=== PATIENT | male | born 1945 | race Caucasian/White ===

== ENCOUNTER 2022-02-15 13:45 | Day surgery (SDC) | payer MEDICARE, OTHER ==
[2022-02-13 15:28] VITALS: BMI 30.6
[~2022-02-15 13:45] MED LIST: DEXAMETHASONE SOD PHOSPHATE 4 MG/ML 1 ML VIAL IV ONE; HYDROmorphone 0.5 MG/0.5 ML SYRINGE IVP PRN; LACTATED RINGERS 1,000 ML IV SCH; MOXIFLOXACIN HCL 0.5% DROPS 3 ML BTL OP PRN; ONDANSETRON 4 MG/2 ML VIAL IVP ONE; TETRACAINE 0.5% OPHTH (PF) DROPS 4 ML BTL OP PRN; TIMOLOL 0.5% OPHTH DROPS 5 ML BTL OP PRN
[2022-02-15] MEDS: PHENYLEPHRINE 2.5% OPHTH DRP 2ML OP PRN ×3 (14:05→14:24)
[2022-02-15] MEDS: CYCLOPENTOLATE 1% OPHTH SOLN 2 ML BTL OP PRN ×3 (14:08→14:28)
[2022-02-15 14:25] VITALS: RESP 16; TEMP 98
[2022-02-15] MEDS ORDERED: fentaNYL (PF) 50 MCG/ML 2 ML AMP ONE (15:50)
[2022-02-15] MEDS ORDERED: MIDAZOLAM 2 MG/2 ML VIAL ONE (15:50)
[2022-02-15] MEDS ORDERED: EPINEPHrine (PF) 0.3 ML in BALANCED SALT IRRIG SOLN COMB2 500 ML IRRIGATION ONE (16:11)
[2022-02-15] MEDS ORDERED: HYALURONATE SODIUM INTRAOCULAR 1 EACH SYRINGE (12MG/ML) INTRAOCULA ONE (16:15)
[2022-02-15] MEDS ORDERED: BALANCED SALT IRRIG SOLN COMB2 15 ML IRRIG.SOLN IRRIGATION ONE (16:15)
[2022-02-15] MEDS ORDERED: LIDOCAINE 1% (PF) 10MG/ML VIAL SQ ONE (16:16)
--- NOTE | 2022-02-15 16:45 | P.OP ---
Date of Procedure: 02/15/22 Preoperative Diagnosis: NS & CS Postoperative Diagnosis: same Procedure(s) Performed: PIOL, OS Implants: [id number] 17.50 Anesthesia: MAC Surgeon: Devin Gonzales Pathology: none sent Condition: stable Disposition: same day Indications for Procedure: blurry vision Operative Findings: no complications
[2022-02-15 17:07] VITALS: BP 130/78; PULSE 50
--- NOTE | 2022-02-15 22:23 | OP ---
OPERATIVE REPORT DATE OF SURGERY: 02/15/2022. PROCEDURE: Phacoemulsification of cataract and intraocular lens implant of the left eye. PREOPERATIVE DIAGNOSIS: Nuclear sclerosis, cortical sclerosis with regular astigmatism. POSTOPERATIVE DIAGNOSIS: Nuclear sclerosis, cortical sclerosis with regular astigmatism. SURGEON: Dr. Devin Gonzales. ANESTHESIA: Topical. ESTIMATED BLOOD LOSS: Less than 5 mL. SPECIMEN TAKEN: None. NARRATIVE: After obtaining the appropriate consent, the patient was brought to the operating room. There he was asked to sit upright, and the axes of zero and 180 degrees were identified and marked with a Gentian Anna marker. This was followed by placement of the patient in the proper supine position under cardiac monitoring and prepped and draped in the usual sterile manner. He was approached from his left temporal side, and using previously acquired corneal topography information, the axis of 90 degrees was identified and marked with a [employer] [place] Marker. This was followed by the use of an MVR blade placed at about 5 o'clock on the patient's cornea to create a paracentesis. Through this opening 1% Xylocaine MPF 50:50 mix with balanced salt solution was injected into the anterior chamber. This was followed by stabilization of the anterior chamber with Amvisc. At the 3 o'clock position, a 2.5 mm keratome was used to create a self-sealing corneal flap incision. Through this opening, a cystotome was introduced to begin a continuous tear capsulorrhexis which was then completed using the Utrata forceps. Hydrodissection and hydrodelineation of the lens was accomplished with balanced salt solution. Phacoemulsification of the lens utilizing phaco chop was accomplished in 23.2 seconds at 16% power. Additional Xylocaine MPF was instilled into the anterior chamber. This was followed by removal of the remaining cortical material under irrigation and aspiration as well as careful polishing of the posterior capsule in the capsule vacuum mode. Amvisc was then used to stabilize the capsular bag, and Emir and Pepjayashree capsule polisher instruments were introduced to clean the additional remaining cortical material from the underside of the anterior capsular leaflet. At this stage, an Sharath [employer] model MADIE 315 17.5 diopter posterior chamber intraocular lens was then inserted into the capsular bag without difficulty. This was followed by removal of the remaining viscoelastic material from in and around the intraocular lens. Once the lens was secure in the posterior capsule, alignment of the toric lens was made with the previously placed axes at the 90-degree frank on the patient's sclera. The eye was then brought to normal intraocular pressure through the paracentesis port. He then received two drops of 0.5% timolol followed by two drops of 0.5% moxifloxacin. He was then lightly patched and shielded in the usual manner. There were no complications from the procedure. He tolerated the procedure well and was returned to [facility]patient [facility] in good condition. MMSUSAN / CHACE: [id number] /
== END 2022-02-15 17:29 | disposition home or self-care (01) ==
LOC: OR 13:45
PROVIDERS: ATTEND Ophthalmology
DX: H25.12 Age-related nuclear cataract, left eye (principal); H25.012 Cortical age-related cataract, left eye; H52.222 Regular astigmatism, left eye; H35.071 Retinal telangiectasis, right eye; H52.13 Myopia, bilateral; H52.4 Presbyopia; I10 Essential (primary) hypertension; E78.5 Hyperlipidemia, unspecified; E78.00 Pure hypercholesterolemia, unspecified; M19.90 Unspecified osteoarthritis, unspecified site; H35.30 Unspecified macular degeneration; Z86.711 Personal history of pulmonary embolism; Z79.82 Long term (current) use of aspirin; Z79.01 Long term (current) use of anticoagulants; Z79.899 Other long term (current) drug therapy; Z91.030 Bee allergy status; Z98.890 Other specified postprocedural states; Z82.61 Family history of arthritis; Z80.9 Family history of malignant neoplasm, unspecified; Z82.49 Family history of ischemic heart disease and other diseases of the circulatory system
CPT/HCPCS: 66984; V2787; C1780; J2250; J0171; J3010; J2001

== ENCOUNTER 2022-03-08 09:09 | Day surgery (SDC) | payer MEDICARE, OTHER ==
[2022-03-07 14:24] VITALS: BMI 31.1
[~2022-03-08 09:09] MED LIST changes: -DEXAMETHASONE SOD PHOSPHATE 4 MG/ML 1 ML VIAL IV ONE; -HYDROmorphone 0.5 MG/0.5 ML SYRINGE IVP PRN; +LIDOCAINE 1% (10MG/ML) FOR IV START INTRADERMA PRN; -ONDANSETRON 4 MG/2 ML VIAL IVP ONE
[2022-03-08] MEDS: CYCLOPENTOLATE 1% OPHTH SOLN 2 ML BTL OP PRN ×3 (09:33→09:45)
[2022-03-08] MEDS: PHENYLEPHRINE 2.5% OPHTH DRP 2ML OP PRN ×3 (09:36→09:48)
[2022-03-08 09:38] VITALS: PULSE 51; TEMP 97.3
[2022-03-08] MEDS ORDERED: MIDAZOLAM 2 MG/2 ML VIAL ONE (10:40)
[2022-03-08] MEDS ORDERED: fentaNYL (PF) 50 MCG/ML 2 ML AMP ONE (10:40)
[2022-03-08] MEDS ORDERED: ePHEDrine 50 MG/ML 1 ML VIAL ONE (10:40)
[2022-03-08] MEDS ORDERED: EPINEPHrine (PF) 0.3 ML in BALANCED SALT IRRIG SOLN COMB2 500 ML IRRIGATION ONE (10:51)
[2022-03-08] MEDS ORDERED: HYALURONATE SODIUM INTRAOCULAR 1 EACH SYRINGE (12MG/ML) INTRAOCULA ONE (10:51)
[2022-03-08] MEDS ORDERED: LIDOCAINE 1% (PF) 10MG/ML VIAL MISCELLANE ONE (10:52)
[2022-03-08] MEDS ORDERED: BALANCED SALT IRRIG SOLN COMB2 15 ML IRRIG.SOLN INTRAOCULA ONE (10:52)
--- NOTE | 2022-03-08 11:16 | P.OP ---
Date of Procedure: 03/08/22 Preoperative Diagnosis: NS & CS Postoperative Diagnosis: same Procedure(s) Performed: PIOL OD Implants: [id number] 17.00 Anesthesia: MAC Surgeon: Devin Gonzales Pathology: none sent Condition: stable Disposition: same day Indications for Procedure: blurry vision Operative Findings: no complications
[2022-03-08 11:22] VITALS: RESP 16
[2022-03-08 11:45] VITALS: BP 133/77
--- NOTE | 2022-03-09 11:38 | OP ---
OPERATIVE REPORT DATE OF SURGERY: March 08, 2022. PROCEDURE: Phacoemulsification of cataract and intraocular lens implant of the right eye. PREOPERATIVE DIAGNOSES: Nuclear sclerosis, cortical sclerosis and regular astigmatism. POSTOPERATIVE DIAGNOSES: Nuclear sclerosis, cortical sclerosis and regular astigmatism. SURGEON: Dr. Devin Gonzales. ANESTHESIA: Topical. ESTIMATED BLOOD LOSS: None. SPECIMEN TAKEN: None. NARRATIVE: After obtaining the appropriate consent, the patient was brought to the operating room there he was asked to sit upright and the axes 0 and 180 degrees were identified and marked with a gentian amish marker at the patient's corneal limbus. He was then placed in the proper supine position under cardiac monitoring, prepped and draped in the usual sterile manner. He was approached from his right temporal side and using the previously acquired corneal topography information, the axis of 91 degrees was identified and marked with a [employer] axis marker. At the 11 o'clock position, an MVR blade was used to greater create a paracentesis port. Through this opening, 1% Xylocaine MPF 50:50 mix with balanced salt solution was injected into the anterior chamber. This was followed by stabilization of the anterior chamber with Amvisc. At the 9 o'clock position, a 2.5 mm keratome was used to create a self-sealing corneal flap incision. Through this opening, a cystotome was introduced to begin a continuous tear capsulorrhexis which was then completed using the Utrata forceps. Hydrodissection and hydrodelineation of the lens was accomplished with balanced salt solution. Phacoemulsification lens was accomplished in 21.3 seconds at 12% power using phaco chop. The patient then received additional Xylocaine MPF through the paracentesis port and removal of the remaining cortical material was removed under irrigation and aspiration as well as careful polishing of the posterior capsule in capsule vacuum mode. Additional Amvisc was then used to stabilize the capsular bag and an [employer] model MADIE 315 17.0 diopter posterior chamber intraocular lens was then inserted into the capsular bag without difficulty. The remaining viscoelastic was then removed from in and around the intraocular lens and the orientation of the lens was aligned with the previously placed axis bazan at the 91 degree position. Confirmation of that position was made with the Cionni axis marker at the end of the case. Balance salt solution was then used to bring the eye to normal intraocular pressure through the paracentesis port and there was confirmation that the wounds were watertight. He then received 2 drops of 0.5% timolol followed by 2 drops of moxifloxacin. He was then lightly patched and shielded in the usual manner. There were no complications from the procedure, and he tolerated the procedure well. He was returned to recovery in good condition. MMSUSAN / ANDREAN: [id number] /
== END 2022-03-08 12:08 | disposition home or self-care (01) ==
LOC: OR 09:09
PROVIDERS: ATTEND Ophthalmology
DX: H25.11 Age-related nuclear cataract, right eye (principal); H52.221 Regular astigmatism, right eye
CPT/HCPCS: 66984; V2787; C1780; J2250; J0171; J3010; J2001

== ENCOUNTER → 2024-03-17 | Outpatient (CLI) | payer MEDICARE ==
[2024-03-17 15:35] LABS: ALT 39 U/L (10-49); AST 26 U/L (14-35); Albumin 4.3 g/dL (3.8-4.9); Albumin/Globulin Ratio 1.48 Ratio (1.60-3.17); Alkaline Phosphatase 105 U/L (41-126); BUN/Creat Ratio 11.62 Ratio (12.00-20.00); Blood Urea Nitrogen 9.3 mg/dL (9.0-27.0); Calcium 9.6 mg/dL (8.7-10.3); Carbon Dioxide 24.4 mmol/L (21.6-31.8); Chloride 106 mmol/L (96-109); Chol/HDL Ratio 3.51 Ratio; Globulin 2.9 g/dL (1.6-3.3); Glucose 108 mg/dL (70-110); LDL Cholesterol,Calculated 58.8 mg/dL (0.0-131.0); Potassium 4.7 mmol/L (3.5-5.5); Sodium 143 mmol/L (135-145); Total Bilirubin 0.6 mg/dL (0.3-1.2); Total Protein 7.2 g/dL (6.2-8.2)
[2024-03-17 16:03] LABS: Basophils # (A) 0.05 X 10*3/uL (0.00-0.10); Basophils % (A) 0.6 %; Eosinophils # (A) 0.15 X 10*3/uL (0.04-0.35); Eosinophils % (A) 1.7 %; HCT 46.9 % (39.6-50.0); HGB 15.4 g/dL (13.0-17.0); Lymphocytes % (A) 19.9 %; MCH 30.9 pg (27.0-32.0); MCHC 32.8 g/dL (32.0-37.0); Mean Platelet Volume 10.4 FL (9.5-12.2); Monocytes # (A) 0.84 X 10*3/uL (0.20-1.00); Monocytes % (A) 9.3 %; NRBC Per 100 WBC 0 X 10*3/uL (0.00-0.01); Neutrophils % (A) 68.3 %; Platelet Count 311 X 10*3/uL (140-440); RBC 4.99 X 10*6/uL (4.40-5.60); RDW 14.8 % (11.5-14.5); WBC 9.06 X 10*3/uL (4.50-10.00)
== END | disposition home or self-care (01) ==
LOC: LABWHC1 11:37
PROVIDERS: ATTEND Internal Medicine
DX: E78.2 Mixed hyperlipidemia (principal)
CPT/HCPCS: 36415; 80053; 80061; 85025